=== PATIENT | male | born 1980 | race Caucasian/White ===

== ENCOUNTER 2017-02-27 02:42 | Emergency (ER) | payer SELFPAY ==
[~2017-02-27] VITALS: Ht 175.3 cm; Wt 91.0 kg
[2017-02-27] MEDS ORDERED: SODIUM CHLORIDE 0.9% 1,000 ML IV ONE (04:08)
[2017-02-27] MEDS ORDERED: ONDANSETRON HCL 4MG/2ML VIAL IV STA (04:08)
[2017-02-27 04:37] LABS: HEMATOCRIT. 43.9 % (42.0-52.0); HEMOGLOBIN. 14.9 g/dL (14.0-18.0); MEAN CORPUSCULAR HEMOGLOBIN 30.1 pg (28.0-32.0); MEAN CORPUSCULAR VOLUME 88.4 fL (80.0-94.0); MEAN PLATELET VOLUME 8.5 fl (7.4-10.4); PLATELET 162 x1000/uL (130-400); RED BLOOD CELL COUNT 4.97 mill/uL (4.7-6.1); RED CELL DISTRIBUTION WIDTH 13.2 % (11.6-14.6)
[2017-02-27 04:51] LABS: CARBON DIOXIDE 26 mEq/L (21-32); CHLORIDE 105 mEq/L (98-107); ETHANOL BLOOD 175 mg/dL
[2017-02-27 04:59] LABS: *BARBITURATES SCREEN URINE NEGATIVE (NEGATIVE); *BENZODIAZEPINES SCREEN URINE NEGATIVE (NEGATIVE); *COCAINE SCREEN URINE NEGATIVE (NEGATIVE); CANNABINOID URINE SCREEN NEGATIVE (NEGATIVE); METHADONE URINE SCREEN NEGATIVE (NEGATIVE); OPIATES URINE SCREEN NEGATIVE (NEGATIVE); PHENCYCLIDINE URINE SCREEN NEGATIVE (NEGATIVE)
[2017-02-27 05:00] LABS: *AMPHETAMINES SCREEN URINE NEGATIVE (NEGATIVE)
[2017-02-27 06:56] LABS: PLATELET ESTIMATE NORMAL
[2017-02-27 10:14] VITALS: BP 127/74
== END 2017-02-27 10:17 | disposition home or self-care (01) ==
LOC: ER 04:40
DX: F10.129 Alcohol abuse with intoxication, unspecified (principal); Y90.6 Blood alcohol level of 120-199 mg/100 ml; G92 Toxic encephalopathy; Z86.59 Personal history of other mental and behavioral disorders
CPT/HCPCS: 36415; 51701; 70450; 71010; 80053; 80305; 85025; 96361; 96374; 99291; G0482; J2405; J7030; Z7610